=== PATIENT | female | born 1995 | race Two or more races ===

== ENCOUNTER 2019-02-16 15:18 | Emergency (ER) | payer SELFPAY ==
[~2019-02-16] VITALS: Ht 175.3 cm; Wt 86.4 kg
[2019-02-16] MEDS ORDERED: HYDROcodone/acetaminophen 10/325mg tab PO STA (15:32)
[2019-02-16] MEDS ORDERED: TETanus/Pertussis (Acell)/Diphther VAC/PF (Tdap-Adult) 0.5ml syringe IM ONE (16:40)
[2019-02-16 17:18] VITALS: BP 132/66
== END 2019-02-16 16:55 | disposition home or self-care (01) ==
LOC: ER 15:19
DX: S90.32XA Contusion of left foot, initial encounter (principal); S80.812A Abrasion, left lower leg, initial encounter; W22.8XXA Striking against or struck by other objects, initial encounter; Y93.89 Activity, other specified; Y92.89 Other specified places as the place of occurrence of the external cause; Y99.8 Other external cause status
CPT/HCPCS: 73564; 73610; 90471; 99283